=== PATIENT | female | born 1965 | race Caucasian/White ===

== ENCOUNTER 2017-05-04 21:20 | Emergency (ER) | payer MEDICAID ==
[2017-05-04] MEDS ORDERED: Famotidine 20mg/50ml 20 MG/50 ML BAG IV STA (22:10)
[2017-05-04] MEDS ORDERED: Sodium Chloride 0.9% 1,000 ML IV STA (22:10)
[2017-05-04 22:13] VITALS: PULSE 77; TEMP 98.5
--- NOTE | 2017-05-04 22:20 | ED PDOC ---
Arrival/HPI - General Chief Complaint: Abdominal Pain Time Seen by Provider: 05/04/17 21:31 Historian: Patient - History of Present Illness Narrative History of Present Illness (Text): 05/04/17 22:14 Mercy Thrasher is a 51 year old female, with a history of gallbladder stones, presents to the emergency department complaining of 1 day duration of RUQ abdominal pain associated with nausea and vomiting. Denies any fever, chills, headache, chest pain, shortness of breath, diarrhea, urinary symptoms, or any other complaints at this time. Time/Duration: Other (1 day ) Symptom Onset: Gradual Symptom Course: Unchanged Severity Level: Moderate Activities at Onset: Light Past Medical History - Provider Review Nursing Documentation Reviewed: Yes - Cardiac Hx Hypertension: Yes - Pulmonary Hx Respiratory Disorders: No - Neurological Hx Neurological Disorder: No - HEENT Hx HEENT Disorder: No - Renal Hx Renal Disorder: No - Endocrine/Metabolic Hx Diabetes Mellitus Type 2: Yes - Hematological/Oncological Hx Blood Disorders: No - Integumentary Hx Dermatological Disorder: No - Musculoskeletal/Rheumatological Hx Arthritis: Yes - Gastrointestinal Hx Gastrointestinal Disorders: No Hx Gall Bladder Disease: Yes - Genitourinary/Gynecological Hx Genitourinary Disorders: No - Psychiatric Hx Psychophysiologic Disorder: No Hx Substance Use: No - Anesthesia Hx Anesthesia: No Family/Social History - Physician Review Nursing Documentation Reviewed: Yes Family/Social History: No Known Family HX Smoking Status: Never Smoked Hx Alcohol Use: No Hx Substance Use: No Allergies/Home Meds Allergies/Adverse Reactions: Allergies iron Allergy (Verified 05/04/17 22:02) RASH Penicillins Allergy (Verified 05/04/17 22:01) RASH Physical Exam - Physical Exam Narrative Physical Exam (Text): - Review of Systems Constitutional: Normal. absent: Fatigue, Weight Change, Fevers Eyes: Normal ENT: Normal Respiratory: Normal absent: SOB, Cough, Sputum Cardiovascular: Normal absent: Chest pain, Palpitations, Syncope Gastrointestinal: Present: RUQ abdominal pain, Nausea, Vomiting absent: Diarrhea Genitourinary: Normal. absent: Dysuria, Frequency, Hematuria Musculoskeletal: Normal. absent: Arthralgias, Back Pain, Neck Pain Skin: Normal Neurological: Normal absent: Focal Weakness Endocrine: Normal Hemo/Lymphatic: Normal Psychiatric: Normal - Physical exam Patient appears age appropriate, speaking full sentences without difficulty. - Systems Exam Head: Present: Atraumatic, Normocephalic Pupils: Present: PERRL Extraocular Muscles: Present: EOMI Conjunctiva: Present: Normal Mouth: Present: Moist Mucous Membranes Neck: Present: Normal Range of Motion. No: MIDLINE TENDERNESS, Paraspinal Tenderness Respiratory/Chest: Present: Clear to Auscultation, Good Air Exchange. No: Respiratory Distress, Accessory Muscle Use, Tachypnic Cardiovascular: Present: Regular Rate and Rhythm, Normal S1, S2, Peripheral Pulses Present. No: Murmurs Abdomen: Present: Normal Bowel Sounds, RUQ tenderness to palpation, +ve Barnes' s sign No: Peritoneal Signs, Rebound, Guarding, Distention Back: Present: Normal Inspection. No: Midline Tenderness, Paraspinal Tenderness Upper Extremity: Present: Normal Inspection. No: Cyanosis, Edema Lower Extremity: Present: Normal Inspection. No: Edema Neurological: Present: GCS=15, Speech Normal, cranial nerves II through XII fully intact with no cerebellar abnormality, neuro-sensory fully intact. No focal neurological deficits. Skin: Present: Warm, Dry, Normal Color. No: Rashes Lymphatic: Present: OX3, NI, NC Psychiatric: Present: Alert, Oriented x 3, Normal Insight, Normal Concentration Vital Signs Reviewed: Yes Vital Signs Temp Pulse Resp BP Pulse Ox 05/04/17 22:12 98.5 F 77 20 197/85 H 100 Temperature: Afebrile Blood Pressure: Hypertensive Pulse: Regular Respiratory Rate: Normal Appearance: Positive for: Non-Toxic Pain Distress: Moderate Mental Status: Positive for: Alert and Oriented X 3 Medical Decision Making ED Course and Treatment: 05/04/17 22:21 Impression: A 51 year old female who presents to the emergency department complaining of 1 day duration of RUQ pain with nausea and vomiting. On exam, patient is in moderate painful distress and has RUQ tenderness to palpation with +ve Barnes's sign. Differential Diagnosis included but are not limited to: biliary colic vs. non- specific abdominal pain. Plan: -- Labs -- EKG -- Chest X-ray -- Morphine -- Zofran -- Pepcid -- IVF -- Blood culture -- US abdomen -- Reassess and disposition Progress Notes: 05/04/17 22:51 EKG interpreted by me NSR @ [address]-segment elevations, normal intervals. 05/05/17 00:11 US IMPRESSION: Hepatomegaly. Cholelithiasis, without sonographic evidence to suggest cholecystitis, as detailed above. Limited evaluation of the pancreas, secondary to overlying bowel gas. Dictated By: Marilee Vidal MD 05/05/17 00:41 On reevaluation, patient reports that she feels much better and would like to be discharged home. Patient's repeat abdominal exam is soft, nontender, non distended with positive bowel sounds in all 4 quadrants and no peritoneal signs. Patient is tolerating PO without any difficulty. Patient was offered surgical evaluation in the hospital along with further observation. On reevaluation, patient states that she feels much better and would like to be discharged home and will set up outpatient follow-up herself. Pt states she understands to return to the ER right away for new or worsening symptoms or for inability to f/u with PMD or specialist as instructed. BP remains persistently elevated. pt states she has a hx of HTN and she did not take her meds today. Pt is asymptomatic. Pt has no focal neurological deficits. Denies n/v, denies ENGLISH, denies cp/sob/delacruz. Patient states that she fully agrees with and understands discharge instructions. States that she agrees with the plan and disposition. Verbalized and repeated discharge instructions and plan. I have given the patient opportunity to ask any additional questions. - Lab Interpretations Lab Results: 05/04/17 21:48 05/04/17 21:48 Lab Results 05/04/17 21:48: Sodium 139, Potassium 3.7, Chloride 103, Carbon Dioxide 25, Anion Gap 15, BUN 12, Creatinine 0.6, Est GFR ( Amer) > 60, Est GFR (Non- Af Amer) > 60, Random Glucose 102, Calcium 9.3, Total Bilirubin 0.6, AST 20, ALT 23, Alkaline Phosphatase 105, Total Protein 7.8, Albumin 4.3, Globulin 3.5, Albumin/Globulin Ratio 1.2, Lipase 145 05/04/17 21:48: PT 10.4, INR 0.96, APTT 23.1 L 05/04/17 21:48: WBC 6.3, RBC 4.11, Hgb 9.2 L, Hct 29.5 L, MCV 71.8 L, MCH 22.4 L , MCHC 31.2, RDW 17.6 H, Plt Count 331, MPV 10.2, Gran % 56.5, Lymph % (Auto) 33.2, Barrow % (Auto) 7.6 H, Eos % (Auto) 2.2, Baso % (Auto) 0.5, Gran # 3.58, Lymph # 2.1, Barrow # 0.5, Eos # 0.1, Baso # 0.03 I have reviewed the lab results: Yes - RAD Interpretation Narrative RAD Interpretations (Text): 05/05/17 00:19 EXAM: US Abdomen Limited, Right Upper Quadrant Dictated and Authenticated by: Marilee Vidal MD FINDINGS: Liver: No acute findings. No mass. No intrahepatic bile duct dilation. The liver is increased in size measuring 19.6 cm in longitudinal dimension. Gallbladder: Stones and sludge are identified within the gallbladder, which is otherwise unremarkable. Common bile duct: No stones. No dilation, measuring 7.4 mm. Pancreas: Visualization of the pancreas is limited by overlying bowel gas. Right kidney: No acute findings. No obstructing stones. No solid mass. No hydronephrosis. IMPRESSION: Hepatomegaly. Cholelithiasis, without sonographic evidence to suggest cholecystitis, as detailed above. Limited evaluation of the pancreas, secondary to overlying bowel gas. Radiology Orders: 05/04/17 22:09 CHEST PORTABLE [RAD] Stat 05/04/17 22:11 GALL BLADDER [US] Stat Town Administrator: Radiologist - Medication Orders Current Medication Orders: Discontinued Medications Famotidine (Pepcid 20mg/50ml Premix) 20 mg in 50 mls @ 100 mls/hr IV STAT STA Stop: 05/04/17 22:39 Last Admin: 05/04/17 22:54 Dose: 100 mls/hr Sodium Chloride (Sodium Chloride 0.9%) 1,000 mls @ 1,000 mls/hr IV .Q1H STA Stop: 05/04/17 23:09 Last Admin: 05/04/17 22:54 Dose: 1,000 mls/hr Morphine Sulfate (Morphine) 6 mg IVP STAT STA Stop: 05/04/17 22:11 Last Admin: 05/04/17 22:54 Dose: 6 mg Ondansetron HCl (Zofran Inj) 4 mg IVP STAT STA Stop: 05/04/17 22:11 Last Admin: 05/04/17 22:55 Dose: 4 mg - Scribe Statement The provider has reviewed the documentation as recorded by the Poppyibe Arlet Echeverria Provider Attestation: Provider Scribe Attestation: All medical record entries made by the Poppyibe were at my direction and personally dictated by me. I have reviewed the chart and agree that the record accurately reflects my personal performance of the history, physical exam, medical decision making, and the department course for this patient. I have also personally directed, reviewed, and agree with the discharge instructions and disposition. Disposition/Present on Arrival - Present on Arrival Any Indicators Present on Arrival: No History of DVT/PE: No History of Uncontrolled Diabetes: No Urinary Catheter: No History of Decub. Ulcer: No History Surgical Site Infection Following: None - Disposition Have Diagnosis and Disposition been Completed?: Yes Diagnosis: Biliary colic Disposition: HOME/ ROUTINE Disposition Time: 00:44 Patient Plan: Discharge Condition: GOOD Discharge Instructions (ExitCare): Biliary Colic (ED) Additional Instructions: PLEASE RETURN TO THE EMERGENCY DEPARTMENT FOR NEW OR WORSENING SYMPTOMS. RETURN RIGHT AWAY IF YOU CANNOT FOLLOW UP WITH YOUR PRIMARY CARE DOCTOR, CLINIC, OR SPECIALIST IN 1-2 DAYS. Prescriptions: Acetaminophen with Codeine [Tylenol with Codeine #3 Tablet] 1 each PO Q6 PRN # 12 tablet PRN Reason: Pain, Moderate (4-7) Ondansetron [Zofran Odt] 4 mg PO Q6 PRN #14 odt PRN Reason: Nausea/Vomiting Referrals: Baron Fiore MD [Staff Provider] - Follow up with primary Forms: [id number] (Dutch)
[2017-05-04 22:46] LABS: BASO # 0.03 K/mm3 (0.0-2.0); BASO % 0.5 % (0.0-3.0); EOS # 0.1 (0.0-0.7); EOS % 2.2 % (1.5-5.0); GRAN # 3.58 (1.4-6.5); GRAN % 56.5 % (50.0-68.0); HEMOGLOBIN 9.2 g/dL (12.0-16.0); LYMPH # 2.1 (1.2-3.4); LYMPH % 33.2 % (22.0-35.0); MEAN CELL VOLUME 71.8 fl (80.0-105.0); MEAN CORPUSCULAR HEMOGLOBIN 22.4 pg (25.0-35.0); MEAN CORPUSCULAR HGB CONC 31.2 g/dl (31.0-37.0); MEAN PLATELET VOLUME 10.2 fl (7.0-11.0); MONO # 0.5 (0.1-0.6); MONO % 7.6 % (1.0-6.0); PLATELET COUNT 331 10^3/uL (120.0-450.0); RBC 4.11 10^6/uL (3.5-6.1); RED CELL DISTRIBUTION WIDTH 17.6 % (11.5-14.5); WHITE BLOOD COUNT 6.3 10^3/ul (4.5-11.0)
[2017-05-04 22:51] LABS: ALB/GLOB RATIO 1.2 (1.1-1.8); ALBUMIN 4.3 g/dL (3.0-4.8); ALT/SGPT 23 U/L (7-56); AST/SGOT 20 U/L (15-39); BLOOD UREA NITROGEN 12 mg/dL (7-21); CALCIUM 9.3 mg/dL (8.4-10.5); GFR AFRICAN-AMERICAN > 60; GFR NON-AFRICAN AMERICAN > 60; LIPASE 145 U/L (23-300)
[2017-05-04 22:54] LABS: INR 0.96 (0.93-1.08); PARTIAL THROMBOPLASTIN TIME 23.1 Seconds (23.7-30.8); PROTHROMBIN TIME 10.4 Seconds (9.9-11.8)
--- NOTE | 2017-05-04 23:45 | US ---
EXAM: US Abdomen Limited, Right Upper Quadrant CLINICAL HISTORY: 51 years old, female; Pain; Abdominal pain; Epigastric; Additional info: Ruq pain TECHNIQUE: Real-time ultrasound of the right upper quadrant with image documentation. COMPARISON: No relevant prior studies available. FINDINGS: Liver: No acute findings. No mass. No intrahepatic bile duct dilation. The liver is increased in size measuring 19.6 cm in longitudinal dimension. Gallbladder: Stones and sludge are identified within the gallbladder, which is otherwise unremarkable. Common bile duct: No stones. No dilation, measuring 7.4 mm. Pancreas: Visualization of the pancreas is limited by overlying bowel gas. Right kidney: No acute findings. No obstructing stones. No solid mass. No hydronephrosis. IMPRESSION: Hepatomegaly. Cholelithiasis, without sonographic evidence to suggest cholecystitis, as detailed above. Limited evaluation of the pancreas, secondary to overlying bowel gas.
[2017-05-05 01:23] VITALS: BP 170/90; RESP 18; O2SAT 98
--- NOTE | 2017-05-05 09:15 | RAD ---
HISTORY: surg clearance COMPARISON: No prior. FINDINGS: LUNGS: No active pulmonary disease. PLEURA: No significant pleural effusion identified, no pneumothorax apparent. CARDIOVASCULAR: Normal. OSSEOUS STRUCTURES: No significant abnormalities. VISUALIZED UPPER ABDOMEN: Normal. OTHER FINDINGS: None. IMPRESSION: No active disease.
--- NOTE | 2017-05-05 23:48 | CARD ---
APPROVED REPORT EKG Measurement Heart [id number] <Conclusion> Normal sinus rhythm Septal infarct, age undetermined Abnormal ECG
== END 2017-05-05 01:25 | disposition home or self-care (01) ==
LOC: ED 21:20
DX: K80.50 Calculus of bile duct without cholangitis or cholecystitis without obstruction (principal); E11.9 Type 2 diabetes mellitus without complications; I10 Essential (primary) hypertension
CPT/HCPCS: 71010; 76705; 80053; 83690; 85025; 85610; 85730; 87040; 93005; 96361; 96374; 96375; 99284; J2270; J2405; J7040